=== PATIENT | male | born 1945 | race Caucasian/White ===

== ENCOUNTER 2018-11-22 20:22 | Emergency (ER) | payer BC, MEDICAID, OTHER ==
[~2018-11-22] VITALS: Ht 167.6 cm; Wt 63.5 kg
[~2018-11-22 20:22] MED LIST: CARB-62 PO; CARB-64 PO; CLON1TAB12 PO; SIMV20TA6 PO; VALS80TA2 PO; [UNRECOGNIZED DRUG - CODE] PO
[2018-11-22 20:32] VITALS: BP_SYST 144
--- NOTE | 2018-11-22 20:38 | NUR ---
Pt placed to ER bed 05 with family members. Report given to CHRISTINE Reyes.
--- NOTE | 2018-11-22 20:38 | NUR ---
Pt BIB family members r/t pt experiencing A/V hallucinations x 1 week. Pt denies SI/HI. Family states that pt walks around house at night, talks to things not present. Pt has hx Parkinson's Disease, but no Psyc problems reported. Pt experienced a fall yesterday and hit head. Denies LOC. Pt calm and cooperative at this time, NAD.
--- NOTE | 2018-11-22 20:50 | NUR ---
Dr. Carmona at bedside.
--- NOTE | 2018-11-22 21:01 | NUR ---
# 20 gauge angiocath placed to LAC. Use of asceptic technique. Opsite placed over site. Blood return noted. Blood for lab drawn from site. Flushed with 10 cc of normal saline. No evidence of infiltration noted. Patient tolerated well.
[2018-11-22 21:08] LABS: BILIRUBIN,URINE NEGATIVE (NEGATIVE); BLOOD, URINE NEGATIVE (NEGATIVE); CLARITY/URINE CLEAR (CLEAR); COLOR,URINE YELLOW (YELLOW); GLUCOSE,URINE NEGATIVE (NEGATIVE); KETONES,URINE 1+ (NEGATIVE); LEUKOCYTE ESTERASE ,URINE NEGATIVE (NEGATIVE); NITRITE, URINE NEGATIVE (NEGATIVE); PH,URINE 5.5 (5.0-8.0); PROTEIN URINE TRACE (NEGATIVE)
[2018-11-22 21:15] LABS: BACTERIA,URINE FEW /HPF (None Seen); RBC,URINE NONE SEEN /HPF (0-3); WBC,URINE 0-3 /HPF (0-3)
[2018-11-22 21:16] LABS: MUCUS,URINE None Seen /LPF (None Seen)
[2018-11-22 21:30] LABS: BARBITURATE, URINE NEGATIVE (NEG <=200); BENZODIAZEPINE, URINE NEGATIVE (NEG <=150); CANNABINOID, URINE NEGATIVE (NEG <=50); COCAINE, URINE NEGATIVE (NEG <=150); METHAMPHETAMINES SCREEN,URINE NEGATIVE (NEG <=500); OPIATE, URINE NEGATIVE (NEG <=100); PHENCYCLIDINE SCREEN,URINE NEGATIVE (NEG <=25); UR TRICYCLIC ANTIDEPRESSANTS NEGATIVE (NEG <=300); URINE AMPHETAMINE NEGATIVE (NEG <=500); URINE METHADONE NEGATIVE (NEG <=200); URINE OXYCODONE SCREEN NEGATIVE (NEG <=100); URINE PROPOXYPHENE SCREEN NEGATIVE (NEG <=300)
[2018-11-22 21:34] LABS: BASOPHILS % (AUTO) 0.4 % (0.0-2.0); EOSINOPHILS # (AUTO) 0.2 K/uL (0.0-0.4); EOSINOPHILS % (AUTO) 2.4 % (0.0-4.0); HEMATOCRIT 40.8 % (36-54); HEMOGLOBIN 14.1 g/dL (14.0-18.0); LYMPHOCYTES % (AUTO) 28.6 % (20.5-51.5); MEAN CORPUSCULAR HEMOGLOBIN 35 pg (27-31); MEAN CORPUSCULAR HGB CONC 35 % (32-36); MEAN CORPUSCULAR VOLUME 101 fL (79.0-98.0); MONOCYTES # (AUTO) 0.7 K/uL (0.0-1.0); MONOCYTES % (AUTO) 9.6 % (1.7-9.3); NEUTROPHILS # (AUTO) 4.1 K/uL (1.8-7.7); PLATELET COUNT (AUTO) 199 K/uL (130-430); RED BLOOD CELL COUNT(AUTO) 4.02 MIL/uL (4.2-6.2); RED CELL DISTRIBUTION WIDTH 12.8 % (9.0-15.0); WHITE BLOOD COUNT (AUTO) 6.9 K/uL (4.8-10.8)
--- NOTE | 2018-11-22 21:35 | NUR ---
Patient transported to radiology via naima, accompanied by Leonardo
[2018-11-22 21:41] LABS: ANION GAP 5 (5-15); CALCIUM 9.2 mg/dL (8.4-11.0); CHLORIDE 101 mmol/L (98-107); GLUCOSE 143 mg/dL (70-99); POTASSIUM 3.7 mmol/L (3.5-5.1); SODIUM SERUM 136 mmol/L (136-145); UREA NITROGEN, BLOOD 19 mg/dL (8-21)
[2018-11-22 21:48] LABS: ALANINE AMINOTRANSFERASE 16 U/L (12-78); ALBUMIN 3.8 g/dL (3.4-4.8); ALCOHOL, BLOOD < 3 mg/dL (<10); ASPARTATE AMINOTRANSFERASE 19 U/L (10-37); TOTAL BILIRUBIN 0.6 mg/dL (0.0-1.0)
--- NOTE | 2018-11-22 22:32 | NUR ---
at bedside for re-evaluation
--- NOTE | 2018-11-22 22:52 | NUR ---
Patient is medically clear by ED MD. Patient pending placement at [facility]. Patient and family updated. Voiced no complaints or needs at this time.
--- NOTE | 2018-11-23 00:37 | NUR ---
Patient resting quietly. No acute distress noted. Family at bedside.
[2018-11-23 01:22] VITALS: BP_SYST 132
--- NOTE | 2018-11-23 01:22 | NUR ---
Patient and daughter given written and verbal discharge instructions and verbalizes understanding. ER MD Carmona discussed with patient the results and treatment provided. Patient in stable condition. ID arm band removed. IV catheter removed intact and dressing applied, no active bleeding. No Rx given. Patient educated on pain management and to follow up with PMD or psychiatric facility for futher evaluation. Pain Scale 0/10 Opportunity for questions provided and answered. Medication side effect fact sheet provided.
== END 2018-11-23 01:22 | disposition home or self-care (01) ==
LOC: SED 20:22
DX: R44.1 Visual hallucinations (principal); R44.0 Auditory hallucinations; G20 Parkinson's disease; I10 Essential (primary) hypertension; Z79.899 Other long term (current) drug therapy
CPT/HCPCS: 36415; 70450; 71045; 80053; 80307; 81000; 82550; 84484; 85025; 93005; 99284; G0482

== ENCOUNTER 2020-09-28 16:00 | Emergency (ER) | payer BC ==
[~2020-09-28] VITALS: Ht 172.7 cm; Wt 63.5 kg
[~2020-09-28 16:00] MED LIST changes: +CARB-60 PO; +FOLI-43 PO; +METH5TAB70 PO; +SIMV-43 PO; -SIMV20TA6 PO
[2020-09-28 16:09] VITALS: BP_SYST 153
--- NOTE | 2020-09-28 16:12 | NUR ---
Patient to ER bed 2 to gown for evaluation. Side rails up. Report given to Bhavani KING.
--- NOTE | 2020-09-28 16:29 | NUR ---
Pt c/o elevated BP. Stated that his SBP went over 200's. C/o of a headache. Placed patient on monitor. Pt aox4, speaks in clear and complete sentences, respirations unlabored. Needs assistance with ADL's. Hx of Parkinson. Pending MD kelly.
--- NOTE | 2020-09-28 16:31 | NUR ---
ER Dr. Corona at bedside examining patient.
[2020-09-28] MEDS ORDERED: KETOROLAC TROMETHAMINE 30 MG VIAL IM ONE (16:45)
[2020-09-28] MEDS ORDERED: ACETAMINOPHEN 500 MG TABLET PO ONE (16:45)
--- NOTE | 2020-09-28 17:22 | NUR ---
Patient given written and verbal discharge instructions and verbalizes understanding. ER MD Corona discussed with patient the results and treatment provided. Patient in stable condition. ID arm band removed. Patient educated on pain management and to follow up with PMD. Pain Scale 0/10. Opportunity for questions provided and answered. Medication side effect fact sheet provided.
[2020-09-28 17:24] VITALS: BP_SYST 159
== END 2020-09-28 17:22 | disposition home or self-care (01) ==
LOC: SED 16:00
DX: I10 Essential (primary) hypertension (principal); R51.9 Headache, unspecified; E07.9 Disorder of thyroid, unspecified; G20 Parkinson's disease; Z79.899 Other long term (current) drug therapy
CPT/HCPCS: 96372; 99283; J1885